=== PATIENT | female | born 1930 | race African-American/Black ===

== ENCOUNTER → 2017-03-26 | Day surgery (SDC) | payer MEDICARE, MEDICAID ==
[~2017-03-26] MED LIST: LIDOCAINE HCL 1% 20ML VIAL (Pyxis) INJ ONE; SODIUM BICARBONATE 8.4% 1 MEQ/ML 50ML SYR IV ONE
== END | disposition home or self-care (01) ==
LOC: RAD 12:57
PROVIDERS: ATTEND Internal Medicine Endocrinology, Diabetes & Metabolism
DX: E04.1 Nontoxic single thyroid nodule (principal)
CPT/HCPCS: 10022; 76942; 88172; 88173; J3490

== ENCOUNTER 2017-05-06 16:24 | Emergency (ER) | payer MEDICAID, MEDICARE ==
[~2017-05-06] VITALS: Ht 152.4 cm; Wt 76.0 kg
[2017-05-06] MEDS ORDERED: IBUPROFEN 600MG TABLET PO ONE (18:30)
[2017-05-06 19:17] VITALS: BP 195/104
[2017-05-06] MEDS ORDERED: CLONIDINE 0.1MG TABLET PO ONE (19:30)
== END 2017-05-06 19:59 | disposition home or self-care (01) ==
LOC: ER 16:45
DX: S09.90XA Unspecified injury of head, initial encounter (principal); S50.311A Abrasion of right elbow, initial encounter; I10 Essential (primary) hypertension; Z98.1 Arthrodesis status; V03.10XA Pedestrian on foot injured in collision with car, pick-up truck or van in traffic accident, initial encounter; Y93.89 Activity, other specified; Y92.488 Other paved roadways as the place of occurrence of the external cause
CPT/HCPCS: 70450; 73562; 99284

== ENCOUNTER 2017-05-07 17:21 | Emergency (ER) | payer MEDICARE ==
[~2017-05-07] VITALS: Ht 160 cm; Wt 76.0 kg
[2017-05-07] MEDS ORDERED: ACETAMINOPHEN 325MG TABLET PO ONE (18:00)
[2017-05-07 20:43] VITALS: BP 142/79
== END 2017-05-07 21:51 | disposition home or self-care (01) ==
LOC: ER 19:15
DX: S09.8XXA Other specified injuries of head, initial encounter (principal); S42.401A Unspecified fracture of lower end of right humerus, initial encounter for closed fracture; M25.531 Pain in right wrist; M25.562 Pain in left knee; S49.91XA Unspecified injury of right shoulder and upper arm, initial encounter; V03.90XA Pedestrian on foot injured in collision with car, pick-up truck or van, unspecified whether traffic or nontraffic accident, initial encounter; M85.80 Other specified disorders of bone density and structure, unspecified site; Y93.89 Activity, other specified; Y92.410 Unspecified street and highway as the place of occurrence of the external cause; M75.31 Calcific tendinitis of right shoulder; I10 Essential (primary) hypertension
CPT/HCPCS: 29105; 70450; 72125; 73030; 73080; 73110; 99284; A4565

== ENCOUNTER 2017-05-10 15:21 | Emergency (ER) | payer MEDICARE ==
[~2017-05-10] VITALS: Ht 167.6 cm; Wt 80.0 kg
[2017-05-10 21:33] VITALS: BP 155/90
== END 2017-05-11 08:36 | disposition home or self-care (01) ==
LOC: ER 05-11 08:36
DX: M25.521 Pain in right elbow (principal); I10 Essential (primary) hypertension
CPT/HCPCS: 99283

== ENCOUNTER 2018-11-01 13:01 | Inpatient (IN) | payer MEDICARE, OTHER, MEDICAID ==
[~2018-11-01] VITALS: Ht 152.4 cm; Wt 73.9 kg
[2018-11-01] MEDS ORDERED: FENTANYL CITRATE/PF 50MCG/ML 2ML VIAL IV ONE (15:45)
[2018-11-01 17:12] LABS: BASOPHILS % 0.4 % (0.0-2.0); EOSINOPHILS % 0.4 % (0.0-5.0); HEMATOCRIT. 38.6 % (36.0-48.0); HEMOGLOBIN. 12.9 g/dL (12.0-16.0); LYMPHOCYTES % 31.1 % (20.0-50.0); MEAN CORPUSCULAR HEMOGLOBIN 30.8 pg (28.0-32.0); MEAN CORPUSCULAR VOLUME 92.3 fL (81.0-99.0); MEAN PLATELET VOLUME 9.4 fl (7.4-10.4); MONOCYTES % 11.6 % (2.0-8.0); NEUTROPHILS % 56.5 % (40.0-76.0); PLATELET 241 x1000/uL (130-400); RED BLOOD CELL COUNT 4.18 mill/uL (4.2-5.4); RED CELL DISTRIBUTION WIDTH 16.7 % (11.6-14.6)
[2018-11-01 17:15] LABS: CHLORIDE 106 mEq/L (98-107)
[2018-11-01] MEDS ORDERED: IPRATROPIUM/ALBUTEROL 0.5-3(2.5)MG/3ML NEB INH PRN (17:15)
[2018-11-01] MEDS ORDERED: ONDANSETRON HCL 4MG/2ML INJ IV PRN (17:15)
[2018-11-01] MEDS ORDERED: ACETAMINOPHEN 325MG TABLET PO PRN (17:15)
[2018-11-01 17:19] LABS: PROTHROMBIN TIME 10.4 sec (9.1-11.1)
[2018-11-01] MEDS ORDERED: SODIUM POLYSTYRENE SULFONATE 15 G/60 ML BOT PO NR (20:00)
[2018-11-01] MEDS: CLONIDINE 0.1MG TABLET PO PRN (20:00)
[2018-11-01 20:40] VITALS: BP 156/66
[2018-11-01] MEDS ORDERED: NA PHOS,M-B/NA PHOS,DI-BA ENEMA 118ML PR PRN (21:00)
[2018-11-01 22:00] VITALS: BP 156/66
[2018-11-01] MEDS ORDERED: AMLO10TA4 PO (23:35)
[2018-11-02] VITALS: BP 128/59
[2018-11-02 04:00] VITALS: BP 150/68
[2018-11-02] MEDS ORDERED: DEXTROSE 50% WATER 50ML SYRINGE IV PRN (05:15)
[2018-11-02] MEDS: BLOOD SUGAR DIAGNOSTIC STRIP TEST SCH ×4 (07:05→20:31)
[2018-11-02] MEDS: INSULIN LISPRO 100 UNITS/ML SUBCUT SCH ×4 (07:05→20:31)
[2018-11-02 08:00] VITALS: BP 169/78
[2018-11-02 08:28] LABS: HEMATOCRIT. 38.8 % (36.0-48.0); HEMOGLOBIN. 12.5 g/dL (12.0-16.0); MEAN CORPUSCULAR HEMOGLOBIN 30.1 pg (28.0-32.0); MEAN CORPUSCULAR VOLUME 93.2 fL (81.0-99.0); PLATELET 199 x1000/uL (130-400); RED BLOOD CELL COUNT 4.16 mill/uL (4.2-5.4); RED CELL DISTRIBUTION WIDTH 15.9 % (11.6-14.6)
[2018-11-02 08:32] LABS: INR 1.1; PROTHROMBIN TIME 10.6 sec (9.1-11.1)
[2018-11-02] MEDS: ENOXAPARIN 40MG/0.4ML SYR SUBCUT SCH (08:58)
[2018-11-02] MEDS: CLONIDINE 0.1MG TABLET PO PRN (09:09)
[2018-11-02] MEDS: HYDROMORPHONE HCL/PF 2MG/ML CPJ IV PRN ×2 (09:19→20:30)
[2018-11-02 09:29] LABS: CHLORIDE 109 mEq/L (98-107)
[2018-11-02 12:00] VITALS: BP 122/63
[2018-11-02 13:24] LABS: PLATELET ESTIMATE NORMAL
[2018-11-02 20:00] VITALS: BP 138/64
[2018-11-03] VITALS: BP_SYST 128; BP_SYST 147; BP_DIAS 69; BP_DIAS 79
[2018-11-03 04:00] VITALS: BP 148/71
[2018-11-03] MEDS: HYDROMORPHONE HCL/PF 2MG/ML CPJ IV PRN ×2 (06:02→15:19)
[2018-11-03] MEDS: INSULIN LISPRO 100 UNITS/ML SUBCUT SCH (06:03)
[2018-11-03] MEDS: BLOOD SUGAR DIAGNOSTIC STRIP TEST SCH (06:03)
[2018-11-03 07:48] LABS: HEMATOCRIT. 36.5 % (36.0-48.0); MEAN CORPUSCULAR HEMOGLOBIN 30.7 pg (28.0-32.0); MEAN CORPUSCULAR VOLUME 93.1 fL (81.0-99.0); MEAN PLATELET VOLUME 8.8 fl (7.4-10.4); PLATELET 198 x1000/uL (130-400); RED BLOOD CELL COUNT 3.92 mill/uL (4.2-5.4); RED CELL DISTRIBUTION WIDTH 15.5 % (11.6-14.6)
[2018-11-03 08:00] VITALS: BP 126/69
[2018-11-03 08:00] LABS: CHLORIDE 105 mEq/L (98-107)
[2018-11-03] MEDS: ENOXAPARIN 40MG/0.4ML SYR SUBCUT SCH (09:47)
[2018-11-03 12:00] VITALS: BP 120/56
[2018-11-03 14:27] LABS: PLATELET ESTIMATE NORMAL
[2018-11-03 16:00] VITALS: BP 141/67
[2018-11-03 20:00] VITALS: BP 134/67
[2018-11-04] VITALS: BP 178/88
[2018-11-04 04:00] VITALS: BP 145/88
[2018-11-04] MEDS ORDERED: IOHEXOL-350 100 ML BOTTLE ONE (05:51)
[2018-11-04 07:30] LABS: BASOPHILS % 0.5 % (0.0-2.0); EOSINOPHILS % 1.4 % (0.0-5.0); HEMATOCRIT. 39.4 % (36.0-48.0); LYMPHOCYTES % 34.2 % (20.0-50.0); MEAN CORPUSCULAR HEMOGLOBIN 30.6 pg (28.0-32.0); MEAN CORPUSCULAR VOLUME 92.9 fL (81.0-99.0); MEAN PLATELET VOLUME 9.1 fl (7.4-10.4); NEUTROPHILS % 50.9 % (40.0-76.0); PLATELET 214 x1000/uL (130-400); RED BLOOD CELL COUNT 4.24 mill/uL (4.2-5.4); RED CELL DISTRIBUTION WIDTH 15.5 % (11.6-14.6)
[2018-11-04 08:00] VITALS: BP 137/60
[2018-11-04] MEDS: ENOXAPARIN 40MG/0.4ML SYR SUBCUT SCH (08:35)
[2018-11-04] MEDS: HYDROMORPHONE HCL/PF 2MG/ML CPJ IV PRN (08:37)
[2018-11-04 12:00] VITALS: BP 130/69
[2018-11-04 14:16] LABS: CHLORIDE 106 mEq/L (98-107)
[2018-11-04 14:23] LABS: PHOSPHORUS 2.4 mg/dL (2.5-4.9)
[2018-11-04 16:00] VITALS: BP 142/67
[2018-11-04] MEDS ORDERED: MAGNESIUM 2 G PREMIX 50 ML IV NR (18:00)
[2018-11-04] MEDS ORDERED: POTASSIUM PHOS,M-BASIC-D-BASIC 15 MMOL in DEXT 5% WATER 245 ML IV NR (18:00)
[2018-11-04 20:00] VITALS: BP 144/56
[2018-11-04] MEDS: CARVEDILOL 3.125 MG TABLET PO SCH (21:00)
[2018-11-05] VITALS (8 sets, daily range): BP systolic 114–146; BP diastolic 54–66
[2018-11-05] MEDS: HYDROMORPHONE HCL/PF 2MG/ML CPJ IV PRN ×3 (01:21→21:15)
[2018-11-05 07:34] LABS: HEMATOCRIT. 35.7 % (36.0-48.0); HEMOGLOBIN. 11.7 g/dL (12.0-16.0); MEAN CORPUSCULAR HEMOGLOBIN 30.3 pg (28.0-32.0); MEAN CORPUSCULAR VOLUME 92.3 fL (81.0-99.0); MEAN PLATELET VOLUME 8.8 fl (7.4-10.4); PLATELET 193 x1000/uL (130-400); RED BLOOD CELL COUNT 3.87 mill/uL (4.2-5.4); RED CELL DISTRIBUTION WIDTH 15.7 % (11.6-14.6)
[2018-11-05 07:46] LABS: CHLORIDE 106 mEq/L (98-107)
[2018-11-05] MEDS ORDERED: POTASSIUM CHLORIDE 20MEQ TABLET SR PO NR (08:15)
[2018-11-05] MEDS: CARVEDILOL 3.125 MG TABLET PO SCH ×2 (08:40→21:14)
[2018-11-05] MEDS: ENOXAPARIN 40MG/0.4ML SYR SUBCUT SCH (08:40)
[2018-11-05 19:14] LABS: PLATELET ESTIMATE NORMAL
== END 2018-11-05 21:52 | DRG 563 ==
LOC: ER 13:01 → 5WST 17:42 → EDBEDREQ 17:46 → ENRESERV 19:07
PROVIDERS: ADMIT Internal Medicine Nephrology; ATTEND Internal Medicine Nephrology
PROC: 2W3RX2Z Immobilization of Left Lower Leg using Cast (ICD-10-PCS; principal; 2018-11-03)
DX: S82.65XA Nondisplaced fracture of lateral malleolus of left fibula, initial encounter for closed fracture (principal); E83.52 Hypercalcemia; I10 Essential (primary) hypertension; E87.5 Hyperkalemia; D72.819 Decreased white blood cell count, unspecified; I48.0 Paroxysmal atrial fibrillation; S70.02XA Contusion of left hip, initial encounter; M17.12 Unilateral primary osteoarthritis, left knee; W01.0XXA Fall on same level from slipping, tripping and stumbling without subsequent striking against object, initial encounter; Y92.002 Bathroom of unspecified non-institutional (private) residence as the place of occurrence of the external cause; Y93.E1 Activity, personal bathing and showering; Z79.82 Long term (current) use of aspirin; Z82.49 Family history of ischemic heart disease and other diseases of the circulatory system; Z91.81 History of falling; Y92.009 Unspecified place in unspecified non-institutional (private) residence as the place of occurrence of the external cause
CPT/HCPCS: 36415; 71045; 71275; 72100; 72170; 73560; 73590; 73610; 80048; 82962; 83735; 84100; 84443; 84484; 86850; 86900; 93005; 93306; 93970; 96374; 97110; 97116; 97162; 97166; 97535; 99285; J1170; J1650; J1815; J3010; J3475; J3490; J7050; J7060; Q9967

== ENCOUNTER 2018-11-05 21:55 | Inpatient (IN) | payer MEDICARE ==
[~2018-11-05] VITALS: Ht 1.8 cm; Wt 73.9 kg
[~2018-11-05 21:55] MED LIST changes: +AMLO10TA4 PO; -LIDOCAINE HCL 1% 20ML VIAL (Pyxis) INJ ONE; -SODIUM BICARBONATE 8.4% 1 MEQ/ML 50ML SYR IV ONE
[2018-11-05 22:00] VITALS: BP_SYST 146; BP_SYST 147; BP_DIAS 66
[2018-11-06] MEDS ORDERED: ACETAMINOPHEN 325MG TABLET PO PRN (00:15)
[2018-11-06] MEDS ORDERED: ONDANSETRON HCL 4MG/2ML INJ IV PRN (00:15)
[2018-11-06] MEDS ORDERED: NA PHOS,M-B/NA PHOS,DI-BA ENEMA 118ML PR PRN (00:15)
[2018-11-06] MEDS ORDERED: IPRATROPIUM/ALBUTEROL 0.5-3(2.5)MG/3ML NEB HHN PRN (00:15)
[2018-11-06] MEDS ORDERED: HYDROMORPHONE HCL/PF 2MG/ML CPJ IV PRN (00:15)
[2018-11-06] MEDS ORDERED: CLONIDINE 0.1MG TABLET PO PRN (00:15)
[2018-11-06 06:33] LABS: HEMATOCRIT. 36.1 % (36.0-48.0); HEMOGLOBIN. 11.8 g/dL (12.0-16.0); MEAN CORPUSCULAR HEMOGLOBIN 30.2 pg (28.0-32.0); MEAN CORPUSCULAR VOLUME 92.6 fL (81.0-99.0); MEAN PLATELET VOLUME 8.9 fl (7.4-10.4); PLATELET 203 x1000/uL (130-400); RED CELL DISTRIBUTION WIDTH 15.6 % (11.6-14.6)
[2018-11-06 07:39] LABS: CHLORIDE 106 mEq/L (98-107)
[2018-11-06 08:00] VITALS: BP 131/61
[2018-11-06] MEDS: CARVEDILOL 3.125 MG TABLET PO SCH ×2 (08:15→20:48)
[2018-11-06] MEDS: ENOXAPARIN 40MG/0.4ML SYR SUBCUT SCH (08:15)
[2018-11-06] MEDS ORDERED: HYDROCODONE/ACETAMINOPHEN 10/325MG TABLET PO PRN (09:30)
[2018-11-06] MEDS ORDERED: HYDROCODONE/ACETAMINOPHEN 5/325MG TABLET PO PRN (09:30)
[2018-11-06 10:50] LABS: PLATELET ESTIMATE NORMAL
[2018-11-06 20:00] VITALS: BP 116/71
[2018-11-07 07:05] VITALS: BP 171/74
[2018-11-07] MEDS: ENOXAPARIN 40MG/0.4ML SYR SUBCUT SCH (08:01)
[2018-11-07] MEDS: CARVEDILOL 3.125 MG TABLET PO SCH ×2 (08:01→20:27)
[2018-11-07 09:28] VITALS: BP 171/74
[2018-11-07] MEDS: OXYCODONE HCL 5MG TABLET PO SCH ×2 (12:54→17:59)
[2018-11-07 19:16] LABS: CLARITY URINE CLEAR (CLEAR); COLOR URINE YELLOW (YELLOW); KETONES URINE NEGATIVE (NEGATIVE); LEUKOCYTE ESTERASE URINE NEGATIVE (NEGATIVE); NITRITE URINE NEGATIVE (NEGATIVE); OCCULT BLOOD URINE NEGATIVE (NEGATIVE); PH URINE 6.5 (4.5-8.0); PROTEIN URINE NEGATIVE (NEGATIVE); SPECIFIC GRAVITY URINE 1.015 (1.005-1.030)
[2018-11-07 20:00] VITALS: BP 146/80
[2018-11-08 07:09] LABS: HEMATOCRIT. 36.3 % (36.0-48.0); HEMOGLOBIN. 11.9 g/dL (12.0-16.0); MEAN CORPUSCULAR HEMOGLOBIN 30.2 pg (28.0-32.0); MEAN CORPUSCULAR VOLUME 92.3 fL (81.0-99.0); PLATELET 197 x1000/uL (130-400); RED BLOOD CELL COUNT 3.94 mill/uL (4.2-5.4); RED CELL DISTRIBUTION WIDTH 15.2 % (11.6-14.6)
[2018-11-08 07:34] LABS: CHLORIDE 105 mEq/L (98-107)
[2018-11-08 08:00] VITALS: BP 152/70
[2018-11-08 08:12] LABS: FOLIC ACID (FOLATE) SERUM 7.4 ng/mL (>5.38)
[2018-11-08 08:20] LABS: PHOSPHORUS 2.8 mg/dL (2.5-4.9); TOTAL IRON BINDING CAPACITY 307 ug/dL (250-450)
[2018-11-08] MEDS: ENOXAPARIN 40MG/0.4ML SYR SUBCUT SCH (08:32)
[2018-11-08] MEDS: CARVEDILOL 3.125 MG TABLET PO SCH ×2 (08:32→20:30)
[2018-11-08] MEDS: OXYCODONE HCL 5MG TABLET PO SCH ×3 (08:33→17:00)
[2018-11-08] MEDS ORDERED: LACTULOSE 20G/30ML UDC PO PRN (10:30)
[2018-11-08 17:54] LABS: PLATELET ESTIMATE NORMAL
[2018-11-08 20:00] VITALS: BP 148/58
[2018-11-09 07:59] LABS: HEMATOCRIT. 35.4 % (36.0-48.0); HEMOGLOBIN. 11.6 g/dL (12.0-16.0); MEAN CORPUSCULAR HEMOGLOBIN 30.3 pg (28.0-32.0); MEAN CORPUSCULAR VOLUME 92.5 fL (81.0-99.0); PLATELET 203 x1000/uL (130-400); RED BLOOD CELL COUNT 3.82 mill/uL (4.2-5.4); RED CELL DISTRIBUTION WIDTH 15.2 % (11.6-14.6)
[2018-11-09 08:00] VITALS: BP 133/65
[2018-11-09 08:02] LABS: CHLORIDE 106 mEq/L (98-107)
[2018-11-09] MEDS: OXYCODONE HCL 5MG TABLET PO SCH ×3 (08:20→17:29)
[2018-11-09] MEDS: ENOXAPARIN 40MG/0.4ML SYR SUBCUT SCH (08:21)
[2018-11-09] MEDS: CARVEDILOL 3.125 MG TABLET PO SCH ×2 (08:21→20:32)
[2018-11-09] MEDS ORDERED: FUROSEMIDE 20MG/2ML VIAL IVP NR (13:15)
[2018-11-09 14:06] LABS: PLATELET ESTIMATE NORMAL
[2018-11-09] MEDS: SODIUM CHLORIDE 0.9% 1,000 ML IV SCH (15:18)
[2018-11-09 17:40] LABS: PHOSPHORUS 3.3 mg/dL (2.5-4.9)
[2018-11-09 20:00] VITALS: BP 127/59
[2018-11-10] MEDS: SODIUM CHLORIDE 0.9% 1,000 ML IV SCH ×2 (02:43→15:55)
[2018-11-10] MEDS: ENOXAPARIN 40MG/0.4ML SYR SUBCUT SCH (08:21)
[2018-11-10] MEDS: CARVEDILOL 3.125 MG TABLET PO SCH ×2 (08:21→21:36)
[2018-11-10] MEDS: OXYCODONE HCL 5MG TABLET PO SCH ×3 (08:22→17:03)
[2018-11-10 08:25] VITALS: BP 156/73
[2018-11-10 08:27] LABS: HEMATOCRIT. 36.9 % (36.0-48.0); MEAN CORPUSCULAR HEMOGLOBIN 30.1 pg (28.0-32.0); MEAN CORPUSCULAR VOLUME 92.9 fL (81.0-99.0); PLATELET 219 x1000/uL (130-400); RED BLOOD CELL COUNT 3.97 mill/uL (4.2-5.4); RED CELL DISTRIBUTION WIDTH 15.4 % (11.6-14.6)
[2018-11-10] MEDS ORDERED: BISACODYL 5MG TABLET PO PRN (12:00)
[2018-11-10 12:14] LABS: PLATELET ESTIMATE NORMAL
[2018-11-10 12:20] VITALS: BP 126/65
[2018-11-10 16:55] VITALS: BP 165/77
[2018-11-10 18:35] VITALS: BP 117/59
[2018-11-10 20:00] VITALS: BP 123/66
[2018-11-11] MEDS ORDERED: HYDROCODONE/ACETAMINOPHEN 10/325MG TABLET PO PRN (01:30)
[2018-11-11] MEDS ORDERED: HYDROCODONE/ACETAMINOPHEN 5/325MG TABLET PO PRN (01:30)
[2018-11-11] MEDS: SODIUM CHLORIDE 0.9% 1,000 ML IV SCH ×2 (03:13→17:18)
[2018-11-11 07:25] VITALS: BP 141/68
[2018-11-11] MEDS: OXYCODONE HCL 5MG TABLET PO SCH ×3 (07:27→17:17)
[2018-11-11] MEDS: CARVEDILOL 3.125 MG TABLET PO SCH ×2 (09:17→22:12)
[2018-11-11] MEDS: ENOXAPARIN 40MG/0.4ML SYR SUBCUT SCH (09:17)
[2018-11-11 20:00] VITALS: BP 151/65
[2018-11-12 07:58] LABS: CHLORIDE 110 mEq/L (98-107)
[2018-11-12 08:00] VITALS: BP 142/63
[2018-11-12] MEDS: SODIUM CHLORIDE 0.9% 1,000 ML IV SCH ×2 (08:00→20:17)
[2018-11-12 08:07] LABS: PHOSPHORUS 3.3 mg/dL (2.5-4.9)
[2018-11-12] MEDS: CARVEDILOL 3.125 MG TABLET PO SCH ×2 (08:31→20:17)
[2018-11-12] MEDS: ENOXAPARIN 40MG/0.4ML SYR SUBCUT SCH (08:32)
[2018-11-12] MEDS: OXYCODONE HCL 5MG TABLET PO SCH ×2 (09:13→13:00)
[2018-11-12 13:30] LABS: HEMATOCRIT. 36.8 % (36.0-48.0); HEMOGLOBIN. 11.9 g/dL (12.0-16.0); MEAN CORPUSCULAR HEMOGLOBIN 30.3 pg (28.0-32.0); MEAN CORPUSCULAR VOLUME 93.7 fL (81.0-99.0); MEAN PLATELET VOLUME 9.3 fl (7.4-10.4); PLATELET 219 x1000/uL (130-400); RED BLOOD CELL COUNT 3.93 mill/uL (4.2-5.4); RED CELL DISTRIBUTION WIDTH 15.2 % (11.6-14.6)
[2018-11-12 14:09] LABS: PLATELET ESTIMATE NORMAL
[2018-11-12 20:00] VITALS: BP 156/77
[2018-11-13 08:00] VITALS: BP 153/79
[2018-11-13] MEDS: CARVEDILOL 3.125 MG TABLET PO SCH ×2 (08:24→20:21)
[2018-11-13] MEDS: ENOXAPARIN 40MG/0.4ML SYR SUBCUT SCH (08:25)
[2018-11-13] MEDS: OXYCODONE HCL 5MG TABLET PO SCH ×3 (08:25→17:00)
[2018-11-13 19:10] LABS: 25-HYDROXY VITAMIN D3 27 ng/mL (.)
[2018-11-13 20:00] VITALS: BP 140/66
[2018-11-13] MEDS: SODIUM CHLORIDE 0.9% 1,000 ML IV SCH (23:55)
[2018-11-14 08:19] VITALS: BP 157/76
[2018-11-14] MEDS: CARVEDILOL 3.125 MG TABLET PO SCH (09:00)
[2018-11-14] MEDS: OXYCODONE HCL 5MG TABLET PO SCH ×2 (09:00→13:00)
[2018-11-14] MEDS: ENOXAPARIN 40MG/0.4ML SYR SUBCUT SCH (09:00)
[2018-11-14 11:51] VITALS: BP 123/59
== END 2018-11-14 13:30 | disposition home health service (06) | DRG 563 ==
PROVIDERS: ADMIT Physical Medicine & Rehabilitation Spinal Cord Injury Medicine; ATTEND Internal Medicine Nephrology
DX: S82.402A Unspecified fracture of shaft of left fibula, initial encounter for closed fracture (principal); E46 Unspecified protein-calorie malnutrition; W01.0XXA Fall on same level from slipping, tripping and stumbling without subsequent striking against object, initial encounter; Y92.002 Bathroom of unspecified non-institutional (private) residence as the place of occurrence of the external cause; S82.892A Other fracture of left lower leg, initial encounter for closed fracture; R26.9 Unspecified abnormalities of gait and mobility; D64.9 Anemia, unspecified; Z91.81 History of falling; I48.0 Paroxysmal atrial fibrillation; I10 Essential (primary) hypertension; D72.819 Decreased white blood cell count, unspecified; R74.8 Abnormal levels of other serum enzymes; E87.5 Hyperkalemia; E83.52 Hypercalcemia; Z82.49 Family history of ischemic heart disease and other diseases of the circulatory system; R53.81 Other malaise; Y93.01 Activity, walking, marching and hiking; Y99.8 Other external cause status; Z68.22 Body mass index [BMI] 22.0-22.9, adult
CPT/HCPCS: 36415; 80048; 82306; 82330; 82607; 82728; 82746; 83540; 83550; 83735; 83970; 84100; 84134; 84443; 85007; 85027; 93970; 97110; 97112; 97116; 97162; 97166; 97530; 97535; C1893; J1170; J1650; J1940; J7030